=== PATIENT | female | born 1955 | race Two or more races ===

== ENCOUNTER 2023-08-02 14:47 | Emergency (ER) | payer OTHER ==
[~2023-08-02] VITALS: Ht 170.2 cm; Wt 77.2 kg
[2023-08-02] MEDS ORDERED: HYDROcodone-ACET 10/325MG TAB PO ONE (15:15)
[2023-08-02] MEDS ORDERED: HYDR-4798 PO (16:50)
[2023-08-02] MEDS ORDERED: IBUP1TAB5 PO (16:50)
[2023-08-02 17:26] VITALS: BP 139/98; PULSE 60; RESP 17; O2SAT 98
== END 2023-08-02 17:44 | disposition home or self-care (01) ==
LOC: ER 14:47 → EDBD 14:47 → ER 17:44
DX: S16.1XXA Strain of muscle, fascia and tendon at neck level, initial encounter (principal); S30.0XXA Contusion of lower back and pelvis, initial encounter; S40.211A Abrasion of right shoulder, initial encounter; W23.0XXA Caught, crushed, jammed, or pinched between moving objects, initial encounter; Y93.39 Activity, other involving climbing, rappelling and jumping off; Y92.89 Other specified places as the place of occurrence of the external cause; Y99.8 Other external cause status
CPT/HCPCS: 72125; 72128; 72131